=== PATIENT | male | born 1980 | race Caucasian/White ===

== ENCOUNTER 2021-05-30 09:33 | Emergency (ER) | payer OTHER, SELFPAY ==
[2021-05-30 09:34] VITALS: BP 136/82; PULSE 87; RESP 18; TEMP 36.4; O2SAT 100
[2021-05-30 09:44] VITALS: BP 120/102; PULSE 85; RESP 18; O2SAT 100
--- NOTE | 2021-05-30 09:46 | PC.NURSE ---
Pt brought bottle he was exposed to with him. [employer] paint and epoxy remover
--- NOTE | 2021-05-30 10:06 | ED.GENADULT ---
HPI - General Adult General Chief complaint: Environmental Exposure Stated complaint: Rn L And D in face Time Seen by Provider: 05/30/21 09:40 Source: patient Mode of arrival: ambulatory Limitations: no limitations History of Present Illness HPI narrative: Patient is a 41-year-old male who presents after having paint remover splash into right ear, right nostril and right eye. Patient was copiously flushed with water at job site. Patient reports mild burning to ear and to right nares. He denies blurred vision or eye pain at this time. He denies all other complaints. complaint: Environmental exposure Related Data Home Medications Medication Instructions Recorded Confirmed No Home Medications 05/30/21 05/30/21 Allergies Allergy/AdvReac Type Severity Reaction Status Date / Time No Known Allergies Allergy Verified 05/30/21 09:42 Review of Systems Review of Systems: Narrative: CONSTITUTIONAL: Denies fever, chills, or sweats. EYES: Denies visual changes, redness, or discharge. ENT: Reports burning the right nares, right ear pain and tenderness to right face. CARDIOVASCULAR: Denies chest pain, palpitations, or edema. RESPIRATORY: Denies cough or dyspnea. GASTROINTESTINAL: Denies abdominal pain, nausea, vomiting, or diarrhea. GENITOURINARY: Denies dysuria or hematuria. SKIN: Denies rash or itching. MUSCULOSKELETAL: Denies back pain, joint pain, or myalgia. NEUROLOGIC: Denies headache, numbness, dizziness, or weakness. PSYCHIATRIC: Denies anxiety or depression. [facility] Social History Social History (Updated 05/30/21 @ 10:11 by FREDI Corona) Smoking status: Never smoker Alcohol intake: former Substance use: former Living arrangements: with family Occupation/Education: occupation Gender identity (if verbalized by the patient): Male Exam Narrative: Exam Narrative: GENERAL: Well-appearing, well-nourished, and in no acute distress. HEAD: Normocephalic, atraumatic. EYES: EOMI. No redness or drainage. Conjunctiva are normal. ENT: Mucous membranes pink and moist. Right nares erythematous with edema, left nares clear. No rhinorrhea. TMs normal bilaterally. Throat normal. Uvula midline. NECK: AROM. Supple. No lymphadenopathy. CHEST: No respiratory distress. Clear to auscultation. HEART: Regular rate and rhythm. EXTREMITIES: Normal range of motion. SKIN: Warm, dry, no rash. NEURO: No focal deficits. Alert and oriented x3. Gait steady. PSYCH: Normal affect. No signs of depression or anxiety. Course Vital Signs Vital signs: Vital Signs Temperature 36.4 C L 05/30/21 09:34 Pulse Rate 87 05/30/21 09:34 Respiratory Rate 18 05/30/21 09:34 Blood Pressure 136/82 05/30/21 09:34 Pulse Oximetry 100 05/30/21 09:34 Temperature 36.4 C L 05/30/21 09:34 Pulse Rate 85 05/30/21 09:44 Respiratory Rate 18 05/30/21 09:44 Blood Pressure 120/102 H 05/30/21 09:44 Pulse Oximetry 100 05/30/21 09:44 Medical Decision Making MDM Narrative Medical decision making narrative: Patient is afebrile nontoxic in appearance. Discussed with patient clear water flushes to face for next 24 to 48 hours. Saline nasal drops may be used as well. No signs of blistering and right ear or in right nostril. Discussed with patient red flags and need to return to the ED. patient is stable for discharge to home with outpatient follow-up as discussed Differential Diagnosis Differential Diagnosis: Environmental exposure, chemical burn Vital Signs Vital Signs: Vital Signs Temperature 36.4 C L 05/30/21 09:34 Pulse Rate 87 05/30/21 09:34 Respiratory Rate 18 05/30/21 09:34 Blood Pressure 136/82 05/30/21 09:34 Pulse Oximetry 100 05/30/21 09:34 Temperature 36.4 C L 05/30/21 09:34 Pulse Rate 85 05/30/21 09:44 Respiratory Rate 18 05/30/21 09:44 Blood Pressure 120/102 H 05/30/21 09:44 Pulse Oximetry 100 05/30/21 09:44 Critical Care Time Critical Care Time Crit
[2021-05-30 11:07] VITALS: BP 126/91; PULSE 88; RESP 16; O2SAT 98
== END 2021-05-30 11:10 | disposition home or self-care (01) ==
PROVIDERS: Emergency Provider Nurse Practitioner; PCP Family Medicine
DX: Z57.5 Occupational exposure to toxic agents in other industries (principal)
CPT/HCPCS: 99282